=== PATIENT | female | born 1995 | race Caucasian/White ===

== ENCOUNTER 2016-03-24 17:56 | Emergency (ER) | payer BC, OTHER ==
[~2016-03-24] VITALS: Wt 61.0 kg
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
[2016-03-24] MEDS ORDERED: ONDA4TAB8 PO (19:21)
[2016-03-24] MEDS ORDERED: MECL12.574 PO (19:21)
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
== END 2016-03-24 19:29 | disposition home or self-care (01) ==
LOC: FTE 17:56
DX: R51 Headache (principal); F17.210 Nicotine dependence, cigarettes, uncomplicated; R11.0 Nausea; V84 Occupant of special vehicle mainly used in agriculture injured in transport accident
CPT/HCPCS: 70450